=== PATIENT | female | born 1945 | race Caucasian/White ===

== ENCOUNTER 2017-06-27 08:31 | Emergency (ER) | payer MEDICARE ==
[2017-06-27] MEDS ORDERED: diphenhydrAMINE 50 MG/ML VIAL ONE (09:15)
[2017-06-27] MEDS ORDERED: methylPREDNISolone Sod Succ/PF 125 MG/2 ML VIAL ONE (09:15)
[2017-06-27] MEDS ORDERED: Metoclopramide HCl 10 MG/2 ML VIAL ONE (09:15)
[2017-06-27] MEDS ORDERED: Sodium Chloride 0.9% 1,000 ML ONE (09:15)
[2017-06-27] MEDS ORDERED: Morphine 4 MG/ML Carpuject ONE (10:02)
[2017-06-27] MEDS ORDERED: cefTRIAXone\\ROCEPHIN 1 GM VIAL ONE (10:10)
[2017-06-27] MEDS ORDERED: Sodium Chloride 0.9% 100 ML ONE (10:11)
== END 2017-06-27 11:00 | disposition home or self-care (01) ==
LOC: NAV ERS 08:31
DX: J01.00 Acute maxillary sinusitis, unspecified (principal); H65.93 Unspecified nonsuppurative otitis media, bilateral
CPT/HCPCS: 96361; 96365; 96375; J0696; J1200; J2270; J2765; J2930; J7050

== ENCOUNTER 2017-11-02 14:11 | Outpatient (CLI) | payer MEDICARE ==
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
--- NOTE | 2017-11-02 15:25 | CT ---
CT HEAD NONCONTRAST DATE: 11/02/17 HISTORY: Head injury. FINDINGS: No comparison. There is no evidence of acute intracranial hemorrhage or infarct. 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 There is no mass effect or esperanza ft of midline structures. Visualized paranasal sinuses remain well aerated. IMPRESSION: No acute traumatic injury is demonstrated. POS: OFF
== END 2017-11-02 14:12 | disposition home or self-care (01) ==
LOC: NAV CT 14:11
PROVIDERS: ATTEND Internal Medicine
DX: S06.0X0A Concussion without loss of consciousness, initial encounter (principal); M48.02 Spinal stenosis, cervical region
CPT/HCPCS: 70450; 72125

== ENCOUNTER 2019-08-21 13:46 | Outpatient (CLI) | payer MEDICARE ==
--- NOTE | 2019-08-21 14:23 | RAD ---
Exam: XR Finger(s) Lt Min 2 View HISTORY: Left thumb pain COMPARISON: None FINDINGS: Mild osteoarthritis involving the left thumb. No acute fracture, dislocation, or other acute osseous abnormality is identified. IMPRESSION: No acute osseous abnormality is identified.
== END 2019-08-21 13:47 | disposition home or self-care (01) ==
LOC: NAV RAD 13:46
PROVIDERS: ATTEND Internal Medicine
DX: M79.645 Pain in left finger(s) (principal)

== ENCOUNTER 2021-09-15 11:39 | Outpatient (CLI) | payer MEDICARE ==
[2021-09-15 12:37] LABS: #Basophils 0.1 thou/uL (0.0-0.2); #Eosinphils 0.1 thou/uL (0.0-0.7); #Lymphocytes 1.2 thou/uL (1.20-3.40); #Monocytes 0.9 thou/uL (0.11-0.59); #Neutrophils 4.6 thou/uL (1.40-6.50); %Basophils 1.8 % (0.0-1.0); %Eosinophils 1.6 % (0.0-10.0); %Monocytes 12.6 % (0.0-10.0); Hemoglobin 6.5 g/dL (12.0-16.0); Mean Corpuscular HGB CONC 27.5 g/dL (32.0-36.0); Mean Corpuscular Hemoglobin 17.5 pg (27.0-31.0); Mean Corpuscular Volume 63.4 fL (78.0-98.0); Platelet Count 295 thou/uL (130-400); RBC Distribution Width 15.6 % (11.5-14.5); Red Blood Cell (RBC) Count 3.73 mill/uL (4.20-5.40); White Blood Cell (WBC) Count 6.9 thou/uL (4.8-10.8)
[2021-09-15 17:40] LABS: Ferritin 3.17 ng/mL (10-291); Iron 15 ug/dL (50-170); Iron Binding Capacity, Total 508 mcg/dL (265-497)
== END 2021-09-15 11:40 | disposition home or self-care (01) ==
LOC: NAV LAB 11:39
PROVIDERS: ATTEND Physician Assistant Medical
DX: D51.0 Vitamin B12 deficiency anemia due to intrinsic factor deficiency (principal)
CPT/HCPCS: 36415; 82607; 82728; 82746; 83540; 83550; 85025